=== PATIENT | female | born 1980 | race Caucasian/White ===

== ENCOUNTER → 2022-11-20 08:54 | Outpatient (CLI) | payer OTHER, SELFPAY ==
--- NOTE | 2022-11-20 | DI.RAD.S_ITS ---
PROCEDURE: FL HIP INJECTION MR/CT RT INDICATIONS: PAIN IN RIGHT HIP TECHNIQUE: The indications, alternatives, benefits, risks, and complications of the procedure were explained to the patient. Written informed consent was obtained and placed in the chart. The hip was examined fluoroscopically with the legs fixed in slight internal rotation, and a site for needle placement chosen for entry into the hip joint from an anterior approach. Care was taken to locate the common femoral artery and vein beforehand. The skin was prepped and draped in a sterile fashion, and 1% Lidocaine infiltrated from skin down to joint capsule. A spinal needle was inserted into the joint, and a small amount of iodinated contrast media injected to confirm intra-articular placement of the needle tip. This was followed by approximately 10 mL dilute solution of a gadolinium containing MR contrast agent. The needle was removed and a dressing was applied. The patient was given postprocedural instructions and sent to the MR suite for imaging. COMPARISON: None. FINDINGS: A single fluoroscopic spot image demonstrates intra-articular location of injected iodinated contrast. IMPRESSION: Successful fluoroscopically guided administration of dilute Gadolinium solution into the hip joint for MR arthrogram. Dictated by: Anders Corbett M.D. on 11/20/2022 at 12:22 Approved by: Anders Corbett M.D. on 11/20/2022 at 12:22
--- NOTE | 2022-11-20 | DI.MRI.S_ITS ---
PROCEDURE: MR HIP RT W CON INDICATIONS: PAIN IN RIGHT HIP TECHNIQUE: After the administration of 10 mL of dilute intra-articular Gadolinium contrast, coronal STIR of the bony pelvis; coronal and oblique axial T1 spin echo with fat saturation, axial T2 fast spin echo with fat saturation, sagittal T1 spin echo with and without fat saturation of the involved hip. COMPARISON: None. FINDINGS: Image quality: Excellent. Bones and joints: Bone marrow of the pelvic ring and proximal femurs show normal signal throughout. No intraosseous lesions or fractures. No avascular necrosis of the femoral head. Slight over covering of right femoral head by right acetabulum is noted which can be seen associated with pincer type femoral acetabular impingement. The visualized lower lumbar spine appears normally aligned. The ligamental, neck, and labral plicae appear normal where visualized. Tendons and ligaments: Tendinosis and low-grade partial-thickness tear involving distal gluteus medius tendon at its insertion on the greater trochanter is seen. Distal right gluteus minimus tendinosis is also seen. The nearby proximal iliotibial band also appears intact. The iliopsoas tendon appears intact, without adjacent bursal fluid collections or evidence for impingement syndrome. The origin of the hamstring tendon is intact at the ischial tuberosity, as well as the associated sacrotuberous ligament. The straight and reflected heads of the rectus femoris muscle origin appear intact, as well as the conjoint tendon. The ligamentum teres appears intact where visualized. Labrum and cartilage: The acetabular labrum appears intact throughout. Cartilage surface of the femoral head appears of normal thickness. No paralabral cysts. The alpha angle of the femur is within normal limits at less than 55 degrees. Soft tissues: Visualized muscles demonstrate normal bulk and internal signal. Quadratus femoris muscle demonstrates no internal edema to suggest ischiofemoral impingement. The proximal sciatic neurovascular bundle appears normal adjacent to the hamstring tendons. No free pelvic fluid. Bladder wall thickness is normal. Genitourinary structures and bowel loops appear normal where visualized. IMPRESSION: 1. No marrow edema. No fracture or dislocation. Slight over covering of right femoral head from right acetabulum which can be seen associated with pincer type femoral acetabular impingement. No evidence of avascular necrosis of femoral head. 2. Mild tendinosis and low-grade intrasubstance partial-thickness tear involving distal right gluteus medius at its insertion on the greater trochanter. Mild distal right gluteus minimus tendinosis. No other muscle or tendon signal abnormalities. 3. No evidence of focal labral tear. Dictated by: Thomas Nunez M.D. on 11/20/2022 at 13:46 Approved by: Thomas Nunez M.D. on 11/20/2022 at 13:59
[2022-11-20] MEDS: SODIUM CHLORIDE 0.9 % 20 ML VIAL IV (13:09)
[2022-11-20] MEDS: LIDOCAINE 1% 20 ML INJ (13:09)
== END ==
PROVIDERS: Referring Provider General Practice; Visit Provider General Practice
DX: S76.011A Strain of muscle, fascia and tendon of right hip, initial encounter (principal); M25.551 Pain in right hip
CPT/HCPCS: 27093; 73722; 77002